=== PATIENT | female | born 1995 | race Caucasian/White ===

== ENCOUNTER → 2021-10-10 07:15 | Outpatient (CLI) | payer BC, SELFPAY ==
[2021-10-10 18:05] LABS: Influenza Control Positive
[2021-10-11 03:58] LABS: SARS-CoV-2 RNA PCR Positive
== END ==
PROVIDERS: PCP Internal Medicine; Visit Provider Nurse Practitioner
DX: R68.89 Other general symptoms and signs (principal); U07.1 COVID-19
CPT/HCPCS: 87804; C9803; U0003; U0005

== ENCOUNTER 2022-07-09 12:26 | Outpatient (CLI) | payer OTHER, SELFPAY ==
[2022-07-09 14:00] LABS: Glucose 1 Hour PP 50gm Dose 103 mg/dL
[2022-07-09 14:06] LABS: Basophils Percent Auto 0.4 % (0.2-1.2); Eosinophils Absolute Auto 0.1 K/mm3 (0-0.3); Eosinophils Percent Auto 0.8 % (0-4.4); Hematocrit 38.6 % (37.0-47.0); Immature Granulocyte Absolute 0.04 K/mm3 (0.00-0.031); Immature Granulocyte Percent A 0.4 % (0-0.5); Lymphocytes Percent Auto 21.2 % (18.3-44.2); Mean Corpuscular HGB Conc 33.7 g/dl (32-36); Mean Corpuscular Hemoglobin 31.3 pg (26-34); Mean Corpuscular Volume 92.8 fl (80-100); Mean Platelet Volume 11.1 fl (7.4-10.4); Monocytes Absolute Auto 0.7 K/mm3 (0.1-0.6); Monocytes Percent Auto 7.9 % (2.6-8.5); Neutrophils Absolute Auto 6.2 K/mm3 (1.3-6.7); Neutrophils Percent Auto 69.3 % (45.5-73.1); Platelet Count Result 300 k/mm3 (150-375); Red Blood Count 4.16 M/mm3 (4.2-5.4); Red Cell Distribution Width 12.4 % (11.5-14.5)
[2022-07-09 14:38] LABS: Hepatitis B Surface Antigen Negative (Negative); Rubella IgG Antibody 8.1 IU/ML
[2022-07-09 14:42] LABS: HIV 1/2 Ab P24 Ag Result Negative (Negative)
[2022-07-10 07:08] LABS: Rapid Plasma Reagin Non-Reactive (NonReactive)
[2022-07-11 08:36] LABS: CMV IgG Antibody <0.60 U/mL (<0.60)
== END 2022-07-09 12:27 | disposition home or self-care (01) ==
LOC: ANHLAB 12:26
PROVIDERS: PCP Internal Medicine; Visit Provider Obstetrics & Gynecology
DX: N94.89 Other specified conditions associated with female genital organs and menstrual cycle (principal)
CPT/HCPCS: 36415; 82947; 84702; 85025; 86592; 86644; 86703; 86747; 86762; 86787; 86850; 86900; 86901; 87086; 87088; 87340; G0432

== ENCOUNTER 2022-10-29 10:34 | Outpatient (CLI) | payer OTHER, BC, SELFPAY ==
[2022-10-29 12:10] LABS: Basophils Percent Auto 0.3 % (0.2-1.2); Eosinophils Percent Auto 0.5 % (0-4.4); Hematocrit 35.4 % (37.0-47.0); Hemoglobin 11.9 g/dL (12.0-15.0); Immature Granulocyte Absolute 0.06 K/mm3 (0.00-0.031); Immature Granulocyte Percent A 0.7 % (0-0.5); Lymphocytes Absolute Auto 1.94 K/mm3 (0.9-3.2); Lymphocytes Percent Auto 22.4 % (18.3-44.2); Mean Corpuscular HGB Conc 33.6 g/dl (32-36); Mean Corpuscular Hemoglobin 30.7 pg (26-34); Mean Corpuscular Volume 91.5 fl (80-100); Mean Platelet Volume 10.7 fl (7.4-10.4); Monocytes Absolute Auto 0.5 K/mm3 (0.1-0.6); Neutrophils Absolute Auto 6.1 K/mm3 (1.3-6.7); Neutrophils Percent Auto 70.1 % (45.5-73.1); Platelet Count Result 331 k/mm3 (150-375); Red Blood Count 3.87 M/mm3 (4.2-5.4); Red Cell Distribution Width 12.5 % (11.5-14.5); White Blood Count 8.7 K/mm3 (4.5-10.0)
[2022-10-29 12:21] LABS: Glucose 1 Hour PP 50gm Dose 106 mg/dL
[2022-10-29 13:04] LABS: HIV 1/2 Ab P24 Ag Result Negative (Negative)
== END 2022-10-29 10:35 | disposition home or self-care (01) ==
LOC: ANHLAB 10:38
PROVIDERS: PCP Internal Medicine; Visit Provider Obstetrics & Gynecology
DX: Z34.90 Encounter for supervision of normal pregnancy, unspecified, unspecified trimester (principal); Z3A.00 Weeks of gestation of pregnancy not specified
CPT/HCPCS: 36415; 82947; 85025; 86703; G0432

== ENCOUNTER 2023-01-25 08:26 | Outpatient (RCR) | payer OTHER, BC, SELFPAY ==
[2023-01-22 09:02] VITALS: BP 134/90; PULSE 94
--- NOTE | ~2023-01-25 | US_ITS ---
EXAMINATION: US OB BPP wo non-stress DATE: 01/25/2023 09:36 INDICATION: Postdates. TECHNIQUE: Real-time pelvic ultrasound was performed. COMPARISON: None. FINDINGS: There is a single living fetus in vertex presentation. The placenta is posterior, greater than 5 cm from the cervix. heart rate is 136 beats per minute (bpm). Biophysical profile performed by the technologist: breathing (30 sec sustained breathing in 30 minutes): 2 out of 2 movement (3 gross body movements in 30 minutes): 2 out of 2 tone (one episode of ilflzbu-mokzhspdc-vwnpolo limb movement): 2 out of 2 Amniotic fluid pocket (2 cm): 2 out of 2 Total score: 8 out of 8 IMPRESSION: 1. Single living fetus in vertex presentation. 2. Biophysical profile 8 out of 8. Reviewed, dictated and finalized at location A.
[2023-01-25 09:48] VITALS: BP 125/85; PULSE 81
== END 2023-04-22 23:59 | disposition home or self-care (01) ==
LOC: ANHOBOP 08:26
PROVIDERS: Visit Provider Obstetrics & Gynecology
DX: O48.0 Post-term pregnancy (principal); Z3A.40 40 weeks gestation of pregnancy; Z3A.41 41 weeks gestation of pregnancy
CPT/HCPCS: 59025; 76819; 90710

== ENCOUNTER 2023-01-27 09:23 | Inpatient (IN) | payer OTHER, BC, SELFPAY ==
[2023-01-27] VITALS (138 sets, daily range): BP systolic 113–152; BP diastolic 47–97; PULSE 65–143; RESP 15–18; TEMP 36.3–37; O2SAT 97–100; BMI 44.1
[2023-01-27 10:41] LABS: Basophils Percent Auto 0.5 % (0.2-1.2); Eosinophils Percent Auto 0.5 % (0-4.4); Hematocrit 32.8 % (37.0-47.0); Hemoglobin 10.8 g/dL (12.0-15.0); Immature Granulocyte Absolute 0.05 K/mm3 (0.00-0.031); Immature Granulocyte Percent A 0.8 % (0-0.5); Lymphocytes Absolute Auto 1.59 K/mm3 (0.9-3.2); Lymphocytes Percent Auto 24.3 % (18.3-44.2); Mean Corpuscular HGB Conc 32.9 g/dl (32-36); Mean Corpuscular Hemoglobin 29.3 pg (26-34); Mean Corpuscular Volume 89.1 fl (80-100); Mean Platelet Volume 11.5 fl (7.4-10.4); Monocytes Absolute Auto 0.6 K/mm3 (0.1-0.6); Monocytes Percent Auto 9.2 % (2.6-8.5); Neutrophils Absolute Auto 4.3 K/mm3 (1.3-6.7); Neutrophils Percent Auto 64.7 % (45.5-73.1); Platelet Count Result 229 k/mm3 (150-375); Red Blood Count 3.68 M/mm3 (4.2-5.4); Red Cell Distribution Width 13.9 % (11.5-14.5); White Blood Count 6.6 K/mm3 (4.5-10.0)
[2023-01-27] MEDS: OXYTOCIN 30 UNITS/NS 500 ML 30 UNITS/500 ML BAG IV CONT (11:00)
[2023-01-27] MEDS: LACTATED RINGERS 1,000 ML 125 ML IV CONT ×2 (11:17→18:49)
--- NOTE | 2023-01-27 18:48 | WPDANESEPP ---
Anes - Eval Pre Procedure Procedure: labor epidural Date/Time: 01/27/23 18:48 Pre Op Diagnosis: labor Patient Data Age: 27 Gender: F Height: 1.68 m Weight: 124 kg Last Vital Signs Temp 36.8 C 01/27/23 17:02 Pulse 73 01/27/23 16:16 Resp 18 01/27/23 14:45 BP 135/73 01/27/23 16:16 Pulse Ox 100 01/27/23 18:44 O2 Del Method Room Air 01/27/23 10:23 Allergies Allergy/AdvReac Type Severity Reaction Status Date / Time Fabric Softeners AdvReac Intermediate RASH Uncoded 01/27/23 10:19 Home Medications Medication Instructions Recorded Confirmed Type doxylamine succinate 25 mg tablet 25 mg PO QHS #60 tabs 06/15/22 01/27/23 Rx (Unisom (doxylamine)) prenat.vits,crhis,gdh-ipem-nukea 1 tablet PO DAILY 08/20/22 01/27/23 History Laboratory Tests 01/27/23 01/27/23 01/27/23 10:18 10:18 10:18 WBC 6.6 K/mm3 K/mm3 (4.5-10.0) RBC 3.68 M/mm3 L M/mm3 (4.2-5.4) Hgb 10.8 g/dL L g/dL (12.0-15.0) Hct 32.8 % L % (37.0-47.0) MCV 89.1 fl fl (80-100) MCH 29.3 pg pg (26-34) MCHC 32.9 g/dl g/dl (32-36) RDW 13.9 % % (11.5-14.5) Plt Count 229 k/mm3 k/mm3 (150-375) MPV 11.5 fl H fl (7.4-10.4) Immature Gran % (Auto) 0.8 % H % (0-0.5) Neut % (Auto) 64.7 % % (45.5-73.1) Lymph % (Auto) 24.3 % % (18.3-44.2) [place] % (Auto) 9.2 % H % (2.6-8.5) Eos % (Auto) 0.5 % % (0-4.4) Baso % (Auto) 0.5 % % (0.2-1.2) Lymph # (Auto) 1.59 K/mm3 K/mm3 (0.9-3.2) [place] # (Auto) 0.6 K/mm3 K/mm3 (0.1-0.6) Eos # (Auto) 0.0 K/mm3 K/mm3 (0-0.3) Baso # (Auto) 0.0 K/mm3 K/mm3 (0.0-0.1) Abs Immat Gran (auto) 0.05 K/mm3 H K/mm3 (0.00-0.031) Absolute Neuts (auto) 4.3 K/mm3 K/mm3 (1.3-6.7) Absolute Nucleated RBC 0.0 K/mm3 K/mm3 (0.0-0.012) Nucleated RBC % 0.0 % % (0.0-0.2) RPR Pending Blood Type O Positive Antibody Screen Negative Patient hx anesthesia problems: none Family hx anesthesia problems: none Results Review: All pre-operative results and documents have been reviewed as part of the pre-operative evaluation. FORMERLY [facility] Past Medical History Medical History Acute gastroenteritis Anxiety Body mass index (bmi) 34.0-34.9, adult Gastro-esophageal reflux disease without esophagitis Lump of breast, right Surgical History Surgical History History of lumpectomy of right breast Family History Family History Mother Patient's mother is in good health Father Patient's father is in good health Sibling Patient's sister is in good health Social History Social History Smoking status: Never smoker Alcohol intake: never Substance use: former Substance use type: does not use Lack of Transportation: No Lack of Food: Never True Current Housing: I Have Housing Concerned About Future Housing: No Difficulty Paying Gas/Electric Bills: No Difficulty Paying for Meds: No Currently Unemployed: No Education: Bachelor's Degree Difficulty w/ Childcare or Family Care: No Living arrangements: with family Occupation/Education: occupation 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
[2023-01-27] MEDS: SODIUM CHLORIDE 0.9% IV 300 ML 600 ML I-UTERINE (19:49)
[2023-01-27] MEDS: FAMOTIDINE 20 MG/2 ML VIAL IV PUSH (21:31)
[2023-01-28] VITALS (66 sets, daily range): BP systolic 113–151; BP diastolic 58–98; PULSE 81–120; RESP 16–18; TEMP 36.7–37.4; O2SAT 97–100
[2023-01-28] MEDS: AMPICILLIN 2 GM/NS 100 ML 2 GM/100 ML BAG IVPB (02:41)
[2023-01-28] MEDS: OXYTOCIN 30 UNITS/NS 500 ML 30 UNITS/500 ML BAG 125 UNITS IV CONT (04:12)
--- NOTE | 2023-01-28 04:24 | WPDOBADMIT ---
Obstetrics - Admit Note Admission Note: record reviewed. No pertinent additions to the history and/or any subsequent changes in the physical findings that are not consistent with the expected course of the were found. Additions to the history and/or subsequent changes in the physical findings follow. Pt admitted after SROM of clear fluid at home.
--- NOTE | 2023-01-28 04:25 | PM.OBPRVD ---
OB - Delivery Note Procedure Delivery date: 01/28/23 Procedure: Intrapartal Events: Other (Prolonged rupture of membranes) Induction method: Per Pitocin Protocol Delivery augmentation: Pitocin Delivery monitor: External FHT and External Uterine Route of delivery: Episiotomy description: None Laceration Description: Perineal - 3rd Degree (partial- Repaired by Dr. Street) Delivery repair: vicryl Specimen: No Quantitative Blood Loss (ml): 500 Anesthesia type: Epidural Disposition: Floor Narrative: Patient arrived after spontaneous rupture of membranes at home. She was augmented with Pitocin. She received an epidural for analgesia. After a period of variable decelerations she received an amnio infusion. variables that improved, resolved. after 18 hours of rupture of membranes, antibiotics were started per protocol. She progressed to complete dilation and pushed with contractions. After the delivery of the head, no restitution was observed and a nuchal cord was identified. With the next push the anterior shoulder slowly delivered followed by the posterior. The remainder of the was delivered to the somersault maneuver. The cord was reduced from the neck and the body. The was placed on maternal abdomen and care was transferred to the nursery staff. After 1 minute of life, the cord was doubly clamped and cut. Cord blood, cord gases, and cord segment were obtained. The placenta delivered spontaneously. A partial third-degree laceration was identified and Dr. Street was called for repair. Using 0 Vicryl, she repaired the third-degree laceration in the usual fashion as well as the remainder of the vaginal tear. There was excellent hemostasis. All delivery counts correct. Mother baby skin to skin in the delivery room. Infant weight not available at the time of this note. [place] Baby Date of : 01/28/23 Time of : 03:43 Weeks of gestation at delivery: 41 Infant gender: Female presentation: vertex position: Right Occiput Anterior Placenta delivery description: Spontaneous Cord Vessel Description: 3 Vessels, Nuchal Cord, Clamped/Cut, Delayed Cord Clamping and Around Body score one minute: 8 score five minutes: 9
[2023-01-28] MEDS: IBUPROFEN 600 MG TABLET PO ×3 (05:38→18:51)
[2023-01-28] MEDS: BENZOCAINE 20% AER SPR (*SP) 56 GM CAN 1 SPRAY TOPICAL (06:45)
[2023-01-28] MEDS: WITCH HAZEL 40 PADS 1 PAD TOPICAL (06:45)
--- NOTE | 2023-01-28 06:53 | OBPPTRN ---
Patient transferred to post room #292 via wheelchair. Support person present. Oriented to unit, room, information board, rooming in, admission packet and security measures. Patient verbalizes understanding.
--- NOTE | 2023-01-28 07:55 | PM.OBDSVD ---
DS: Admitting Diagnosis Discharge Date 01/29/2023 Admitting Diagnosis 27 y.o. IUP at 41 weeks 2 days SROM of clear fluid Rubella Non-Immune DS: Discharge Diagnosis Discharge Diagnosis (1) (normal spontaneous vaginal delivery): Code(s): O80 - Encounter for full-term uncomplicated delivery Status: Acute (2) Rubella non-immune status, delivered, current hospitalization: Code(s): O99.892 - Other specified diseases and conditions complicating childbirth; Z28.39 - Other underimmunization status Status: Acute (3) Mother currently breast-feeding: Code(s): Z39.1 - Encounter for care and examination of lactating mother Status: Acute OB - DS: Summary OB Procedures : Ultrasound OB Procedures Intrapartum: Spontaneous Vag Delivery OB Procedures: : None Time Spent with Patient Time attestation: Total time spent providing and/or coordinating discharge services: DS: Data Data Completed and Pending Labs on day of discharge: Labs from last 24 hours 01/27/23 01/27/23 01/27/23 10:18 10:18 10:18 WBC 6.6 RBC 3.68 L Hgb 10.8 L Hct 32.8 L MCV 89.1 MCH 29.3 MCHC 32.9 RDW 13.9 Plt Count 229 MPV 11.5 H Immature Gran % (Auto) 0.8 H Neut % (Auto) 64.7 Lymph % (Auto) 24.3 [place] % (Auto) 9.2 H Eos % (Auto) 0.5 Baso % (Auto) 0.5 Lymph # (Auto) 1.59 [place] # (Auto) 0.6 Eos # (Auto) 0.0 Baso # (Auto) 0.0 Abs Immat Gran (auto) 0.05 H Absolute Neuts (auto) 4.3 Absolute Nucleated RBC 0.0 Nucleated RBC % 0.0 RPR Pending Blood Type O Positive Antibody Screen Negative Discharge Plan Discharge Consulting providers: Tammy Schuler; Tangela Jacobson Discharging Clinician: Alec Vila Patient Disposition: Home, Self-Care Activity: may shower Diet: regular Discharge Instructions: Continue taking your vitamin and any other supplements as previously directed (Examples: Iron, Vitamin D). You may take Tylenol 1000mg over the counter every 6 hours as needed for pain. Do not exceed 4000mg of Tylenol daily. You may continue using tucks pads and dermoplast spray if needed for a few more days. Education: Mom and Baby Guide Given to: Mother Follow-Up: Call your delivering provider's office for an appointment to be seen in: 6 Weeks Mom [facility]. Appointment Date/Time: January 30, 2023 at 10:00 am What to expect at your follow-up visit: Physical Assessment Call [phone] if you are unable to keep your appointment time. BREAST CARE: * Wear a snug supportive bra. * For engorgement discomfort: Breast Feeding/Pumping: * Apply warm moist washcloths * Express milk as needed to relieve engorgement * Wear loose clothing Bottle Feeding and if not pumping: * May apply ice packs * For sore nipples: * Identify correct latch-on and/or flange size * Apply warm moist washcloths before and after nursing * Air dry nipples after nursing * May apply Lansinoh cream to nipples EPISIOTOMY/PERINEAL CARE: * Until bleeding stops, use your sanaz bottle after urinating * Change your pad frequently throughout the day * You may take sitz baths several times a day (fill your bathtub with warm water and soak for 20 minutes.) Do NOT bathe in the water * No tub baths until seen by your physician - You may shower ACTIVITY: * Rest as much as possible. * Do not exercise or lift anything heavier than your baby (such as laundry or other children.) * Avoid stairs or driving as much as possible. * Do not put anything into the vagina. No douching, tampons, or sexual activity until seen by physician. NOTIFY PHYSICIAN IF YOU HAVE ANY QUESTIONS OR IF ANY OF THE FOLLOWING SYMPTOMS OCCUR: * If your episiotomy/perineum beco
[2023-01-28 09:40] LABS: Rapid Plasma Reagin Non-Reactive (NonReactive)
[2023-01-28] MEDS: DOCUSATE SODIUM 100 MG CAPSULE PO (11:57)
[2023-01-29 04:55] VITALS: BP 139/91; PULSE 93; RESP 16; TEMP 36.6; O2SAT 96
[2023-01-29 04:57] LABS: Hematocrit 26.5 % (37.0-47.0); Hemoglobin 8.7 g/dL (12.0-15.0)
[2023-01-29] MEDS: IBUPROFEN 600 MG TABLET PO (05:03)
[2023-01-29] MEDS: DOCUSATE SODIUM 100 MG CAPSULE PO (07:38)
[2023-01-29] MEDS: POLYSACCHARIDE IRON COMPLEX 150 MG CAPSULE PO (07:38)
[2023-01-29] MEDS: MULTIVIT/MIN/PREN/FOL AC/IRON TABLET 1 TAB PO (07:38)
--- NOTE | 2023-01-29 08:39 | P.DS_ITS ---
DS: Admitting Diagnosis Discharge Date 01/29/2023 Admitting Diagnosis DS: Discharge Diagnosis Discharge Diagnosis (1) , delivered: Code(s): O80 - Encounter for full-term uncomplicated delivery Status: Acute OB - DS: Summary OB Procedures : None OB Procedures Intrapartum: Spontaneous Vag Delivery OB Procedures: : None Time Spent with Patient Time attestation: Total time spent providing and/or coordinating discharge services: DS: Data Data Completed and Pending Labs on day of discharge: Labs from last 24 hours 01/29/23 01/27/23 04:45 10:18 Hgb 8.7 L Hct 26.5 L RPR Non-reactive Discharge Plan Discharge Discharging Clinician: Alec Vila Patient Disposition: Home, Self-Care Activity: may shower Diet: regular Discharge Instructions: Continue taking your vitamin and any other supplements as previously directed (Examples: Iron, Vitamin D). You may take Tylenol 1000mg over the counter every 6 hours as needed for pain. Do not exceed 4000mg of Tylenol daily. You may continue using tucks pads and dermoplast spray if needed for a few more days. Patient Instructions: Antibiotic Form Stand Alone Forms: General Discharge Information Follow-up/Referrals: Alec Vila MD [Physician] - (6 weeks post ) Discharge Medications: New ibuprofen 600 mg Tablet 600 mg PO Q6H PRN (Reason: Cramping) Qty: 30 0RF Continued Unisom (doxylamine) 25 mg tablet 25 mg PO QHS Qty: 60 1RF prenat.vits,chris,iwq-njml-cefrr Tablet 1 tablet PO DAILY Date of admission: 01/27/23 09:23 Primary Care Provider: PHYSICIAN,[employer] LAW CLERK Admitting Provider: Alec Vila Attending physician on admission: Alec Vila Condition: Stable
[2023-01-29 08:40] VITALS: BP 132/89; PULSE 88; RESP 20; TEMP 36.8; O2SAT 100
--- NOTE | 2023-01-29 13:00 | PC.NURSE ---
Patient to view the discharge video Mother & Baby Care, The First Two Weeks online. Patient was given the opportunity and encouraged to ask questions. Patient verbalized understanding of information shared and has been given the mother/baby guide for home reference. Spoke w/ pt regarding going home today or if she would like to stay until tomorrow and work on , per patient she would like to go home this afternoon and she will have her follow up tomorrow here at [place] [facility]. RN will go over discharge instructions with pt and reinforce feeding plan with /pumping and bottle feeding.
--- NOTE | 2023-01-29 14:00 | PC.NURSE ---
[phone] Introductions were made, then consulted with patient to assess needs related to . Mother led the conversation with her?plans to feed?her infant and the?experience so far. Resources provided for inpatient and outpatient services with the feeding sheet, mom/baby guide and name written on the white board. Mother voiced understanding of information and will call if there is a request for assistance. Reported to the primary RN. [phone] Mother works well with her with encouragement and education. Encouraged understanding of the benefits of skin to skin (demonstrating unwrapping infant and placing upright on her chest), stimulating with massage touch, changing positions to encourage wakefulness, how to watch for early feeding cues, responsive feeding, feeding on demand (aiming for 8-12 times in 24 hours, about every 2-3 hours), milk production, building/maintaining a milk supply, hand expression, duration of feeding, signs of adequate intake/output and how to record on the feeding sheet. Reviewed positioning and ear, shoulder, hip alignment, supporting the breast to facilitate a deep latch, asymmetrical latch (off-center), leading with the chin with a big, open, wide gape and body close to mother. Attempts were made to latch infant to the right breast using the football position as that is good alignment for mothers breast and comfortablr. Infant is unable to effectively latch to the right breast and pacifies with the nipple at the edge of the lips. No swallowing observed. Infant latched optimally to the left breast in football position. Education given to mother of how to visualize suck/swallow ratios and listen for drinking at the breast. Infant was able to maintain latch without discomfort to mother. Nipple care reviewed with optimal latch and good positioning. Reviewed good handwashing when or touching the breast/nipples to prevent infection. Resources used to facilitate learning were used with the visual handouts/QR codes/ tool/mom and baby guide. Mother voiced understanding of skin to skin, stimulating with massage touch, responsive feedings, hand expressed colostrum, talking to to encourage if it has been 2 -2.5 hours since the start of the last , to call if infant does not latch, or if there is discomfort with . Resources were provided on introduction. Parents voiced understanding of information, demonstrated learning and will call if there is a request for assistance. Reported to the primary RN. [phone] Purposefully rounded to assess needs and deliver a pump through [facility]. Mother was encouraged to stay and practice and chooses to be discharged to home. After changing a wet diaper, was demonstrating feeding cues early and mother consented to practicing on the right breast. There was no effective latch at this time. Reviewed continue with the plan of attempting to breastfeed, pumping to protect the milk supply if infant doesn't latch or receives a bottle, and to supplement infant with expressed breast milk or formula as needed to prevent sickness. Mother is feeding appropriately for growth of and understands stimulating to eat if needed. Infant has had appropriate feedings in the last 24 hours meets the outcomes for weight, output and jaundice at this time. Mother states she is confident to continue to feed her at home, when to call for assistance and denies any additional assistance or education at this time. Reinforced understanding of milk production, transition of milk, signs of adequate intake, transition of stool, prevention/relief of engorgement, responsive watching for feeding cues, the different methods of stimulating to breastfeed 2-3 hours after the start of the last feeding, community resources, and when to call a provider using the resource of the mom an
[2023-01-30 10:12] VITALS: BP 153/96; PULSE 79; RESP 20; TEMP 36.6; O2SAT 100
[2023-01-30] MEDS: MEASLES,MUMPS,RUBELLA VACCINE 0.5 ML VIAL SUB-Q (10:29)
== END 2023-01-29 14:15 | disposition home or self-care (01) | DRG 768 ==
LOC: ANHLDR 10:03 → ANHOB2 01-28 06:54
PROVIDERS: Advanced Practice Midwife; Admitting Provider Obstetrics & Gynecology; Visit Provider Obstetrics & Gynecology
DX: O42.92 Full-term premature rupture of membranes, unspecified as to length of time between rupture and onset of labor (principal); Z37.0 Single live birth; O70.20 Third degree perineal laceration during delivery, unspecified; O76 Abnormality in fetal heart rate and rhythm complicating labor and delivery; O69.81X0 Labor and delivery complicated by cord around neck, without compression, not applicable or unspecified; Z3A.41 41 weeks gestation of pregnancy
CPT/HCPCS: 36415; 84112; 85014; 85018; 85025; 86592; 86850; 86900; 86901; 90710; A9270; J0290; J2590; J2795; J7030; J7120

== ENCOUNTER 2023-04-10 11:33 | Outpatient (CLI) | payer BC, SELFPAY | END 2023-04-10 11:34 | disposition home or self-care (01) | LOC: ANHLAB 11:35 | PROVIDERS: Visit Provider Obstetrics & Gynecology | DX: N39.0 Urinary tract infection, site not specified (principal) | CPT/HCPCS: 87086; 87088 ==

== ENCOUNTER 2024-06-08 10:26 | Outpatient (CLI) | payer BC, SELFPAY ==
[2024-06-08 14:08] LABS: Hematocrit 41.3 % (37.0-47.0); Hemoglobin 13.4 g/dL (12.0-15.0); Mean Corpuscular HGB Conc 32.4 g/dl (32-36); Mean Corpuscular Hemoglobin 30.2 pg (26-34); Mean Corpuscular Volume 93.2 fl (80-100); Mean Platelet Volume 11.4 fl (7.4-10.4); Platelet Count Result 313 k/mm3 (150-375); Red Blood Count 4.43 M/mm3 (4.2-5.4); Red Cell Distribution Width 12.7 % (11.5-14.5); White Blood Count 7.1 K/mm3 (4.5-10.0)
[2024-06-08 14:57] LABS: Alanine Aminotransferase 21 U/L (6-35); Albumin Level 4.4 g/dL (3.5-5.1); Alkaline Phosphatase 85 U/L (38-126); Anion Gap 9 mmol/L (4-12); Aspartate Amino Transferase 49 U/L (14-36); Bilirubin,Total 0.4 mg/dL (0.2-1.3); Blood Urea Nitrogen 15 mg/dL (7-17); Calcium 9.2 mg/dL (8.4-10.2); Carbon Dioxide 26 mmol/L (22-30); Chloride 102 mmol/L (98-107); Cholesterol 190 mg/dL (0-200); Estimated Glomerular Filt Rate > 60; Glucose 78 mg/dL (65-110); HDL Direct 45 mg/dL; Potassium 4.1 mmol/L (3.4-5.0); Sodium 137 mmol/L (137-145); Triglycerides 117 mg/dL (<150)
[2024-06-08 15:09] LABS: LDL Cholesterol Direct 112 mg/dL
== END 2024-06-08 10:27 | disposition home or self-care (01) ==
LOC: ANHGOSHLAB 10:27
PROVIDERS: PCP Nurse Practitioner; Visit Provider Nurse Practitioner
DX: Z13.6 Encounter for screening for cardiovascular disorders (principal); Z13.29 Encounter for screening for other suspected endocrine disorder; Z13.220 Encounter for screening for lipoid disorders; Z76.89 Persons encountering health services in other specified circumstances; E55.9 Vitamin D deficiency, unspecified
CPT/HCPCS: 36415; 80053; 80061; 84443; 85027

== ENCOUNTER 2024-12-07 08:33 | Outpatient (CLI) | payer BC, SELFPAY ==
[2024-12-07 10:07] LABS: Basophils Percent Auto 0.5 % (0.2-1.2); Eosinophils Percent Auto 0.5 % (0-4.4); Hematocrit 37.2 % (37.0-47.0); Hemoglobin 12.8 g/dL (12.0-15.0); Immature Granulocyte Absolute 0.04 K/mm3 (0.00-0.031); Immature Granulocyte Percent A 0.5 % (0-0.5); Lymphocytes Absolute Auto 1.72 K/mm3 (0.9-3.2); Lymphocytes Percent Auto 20.6 % (18.3-44.2); Mean Corpuscular HGB Conc 34.4 g/dl (32-36); Mean Corpuscular Hemoglobin 30.8 pg (26-34); Mean Corpuscular Volume 89.4 fl (80-100); Mean Platelet Volume 10.9 fl (7.4-10.4); Monocytes Absolute Auto 0.4 K/mm3 (0.1-0.6); Monocytes Percent Auto 4.3 % (2.6-8.5); Neutrophils Absolute Auto 6.2 K/mm3 (1.3-6.7); Neutrophils Percent Auto 73.6 % (45.5-73.1); Platelet Count Result 295 k/mm3 (150-375); Red Blood Count 4.16 M/mm3 (4.2-5.4); Red Cell Distribution Width 12.7 % (11.5-14.5); White Blood Count 8.4 K/mm3 (4.5-10.0)
[2024-12-07 10:14] LABS: Glucose 1 Hour PP 50gm Dose 111 mg/dL
[2024-12-07 10:54] LABS: Hepatitis B Surface Antigen Negative (Negative); Rubella IgG Antibody 18.5 IU/ML
[2024-12-07 10:56] LABS: HIV 1/2 Ab P24 Ag Result Negative (Negative)
[2024-12-08 08:58] LABS: CMV IgG Antibody <0.60 U/mL; Varicella IgG Antibody 3.83 S/CO
[2024-12-08 13:20] LABS: RPR Screen NON-REACTIVE (NON-REACTIVE)
== END 2024-12-07 08:34 | disposition home or self-care (01) ==
LOC: ANHLAB 08:33
PROVIDERS: PCP Nurse Practitioner; Visit Provider Obstetrics & Gynecology
DX: N94.89 Other specified conditions associated with female genital organs and menstrual cycle (principal)
CPT/HCPCS: 36415; 82947; 84702; 85025; 86592; 86644; 86703; 86747; 86762; 86787; 86850; 86900; 86901; 87086; 87340; G0432

== ENCOUNTER 2025-05-07 08:01 | Outpatient (CLI) | payer BC, SELFPAY ==
[2025-05-07 09:15] LABS: Hematocrit 33.4 % (37.0-47.0); Hemoglobin 11.2 g/dL (12.0-15.0); Immature Granulocyte Percent A 1.1 % (0-0.5); Lymphocytes Absolute Auto 1.52 K/mm3 (0.9-3.2); Mean Corpuscular HGB Conc 33.5 g/dl (32-36); Mean Corpuscular Hemoglobin 30.6 pg (26-34); Mean Corpuscular Volume 91.3 fl (80-100); Nucleated Red Blood Cells Absolute Auto 0.000 K/mm3 (0.0-0.012); Nucleated Red Blood Cells Perc 0.0 % (0.0-0.2); Platelet Count Result 288 k/mm3 (150-375); Red Blood Count 3.66 M/mm3 (4.2-5.4); White Blood Count 8.4 K/mm3 (4.5-10.0)
[2025-05-07 09:28] LABS: Glucose 1 Hour PP 50gm Dose 129 mg/dL
[2025-05-07 10:12] LABS: Syphilis IgG/IgM Antibody Non-Reactive (Nonreactive)
[2025-05-07 10:16] LABS: HIV 1/2 Ab P24 Ag Result Negative (Negative)
== END 2025-05-07 08:02 | disposition home or self-care (01) ==
LOC: ANHLAB 08:03
PROVIDERS: PCP Family Medicine; Visit Provider Obstetrics & Gynecology
DX: Z34.90 Encounter for supervision of normal pregnancy, unspecified, unspecified trimester (principal); Z3A.00 Weeks of gestation of pregnancy not specified
CPT/HCPCS: 36415; 82947; 85025; 86593; 86703; G0432

== ENCOUNTER 2025-07-06 09:52 | Inpatient (IN) | payer BC, SELFPAY ==
[2025-07-06] VITALS (249 sets, daily range): BP systolic 72–136; BP diastolic 24–98; PULSE 44–178; TEMP 36.2–36.8; O2SAT 88–100; BMI 40.4
[2025-07-06] MEDS: LACTATED RINGERS 1,000 ML 999 ML IV CONT ×2 (10:30→11:31)
--- NOTE | 2025-07-06 10:42 | P.PNAN_ITS ---
Anes - Eval Pre Procedure Procedure: Operation Date: 07/06/25 12:00 Proposed Procedures p ECV Procedure - Mariluz Dickerson MD Date/Time: 07/06/25 10:42 Surgeon: Tuan Preop Diagnosis: Labor Pain Pre Op Diagnosis: external vesion w/ iol or c/s Patient Data Age: 29 Gender: F Height: Weight: Last Vital Signs Pulse 94 07/06/25 10:31 BP 116/69 07/06/25 10:31 Allergies Allergy/AdvReac Type Severity Reaction Status Date / Time Fabric Softeners AdvReac Intermediate RASH Uncoded 07/05/25 08:47 Home Medications ?Medication ?Instructions ?Recorded ?Confirmed ?Type vits no.126-ferrous fum tablet PO 12/03/24 History 28 mg iron-folic acid 800 mcg tablet (Classic ) aspirin 81 mg chewable tablet 81 mg PO DAILY 05/06/25 07/05/25 History : gestational age (CARLO 07/10/25, ) Patient hx anesthesia problems: none Family hx anesthesia problems: none Results Review: All pre-operative results and documents have been reviewed as part of the pre- operative evaluation. [facility] Past Medical History Medical History Lump of breast, right Body mass index (bmi) 34.0-34.9, adult Gastro-esophageal reflux disease without esophagitis Anxiety Acute gastroenteritis Surgical History Surgical History History of lumpectomy of right breast Family History Family History Mother Patient's mother is in good health Father Patient's father is in good health Sibling Patient's sister is in good health Social History Social History Smoking status: Never smoker Alcohol intake: former Substance use: never Substance use type: does not use Do You Feel Safe in your Home?: Yes Lack of Transportation: No Lack of Food: Never True Current Housing: Decline to Answer Concerned About Future Housing: Decline to Answer Difficulty Paying Gas/Electric Bills: Decline to Answer Difficulty Paying for Meds: Decline to Answer Currently Unemployed: Decline to Answer Education: Associate Degree Difficulty w/ Childcare or Family Care: Decline to Answer Living arrangements: with family Occupation/Education: occupation 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
--- NOTE | 2025-07-06 10:44 | LDADM ---
This patient, Grace Gama, was admitted to Labor/Delivery/Recovery 119 on 07/06/25 at 09:52. Plans for labor, pain management and were discussed with patient. Patient/family oriented to hospital policies and general routines including ID bracelet, bed and alarms, visiting hours, pain management, procedures, bathroom and other care routines, personal items, smoking policy, room service/diet and guest tray routines, security routines, and visiting hours. Patient/Family are encouraged to report perceived risks to care and to ask questions if they do not understand what they are told or what they should do. See [facility] for further documentation.
[2025-07-06 10:46] LABS: Hematocrit 33.6 % (37.0-47.0); Hemoglobin 11.2 g/dL (12.0-15.0); Immature Granulocyte Percent A 0.7 % (0-0.5); Lymphocytes Absolute Auto 1.68 K/mm3 (0.9-3.2); Mean Corpuscular HGB Conc 33.3 g/dl (32-36); Mean Corpuscular Hemoglobin 29.6 pg (26-34); Mean Corpuscular Volume 88.7 fl (80-100); Nucleated Red Blood Cells Absolute Auto 0.000 K/mm3 (0.0-0.012); Nucleated Red Blood Cells Perc 0.0 % (0.0-0.2); Platelet Count Result 310 k/mm3 (150-375); Red Blood Count 3.79 M/mm3 (4.2-5.4); White Blood Count 7.4 K/mm3 (4.5-10.0)
[2025-07-06 11:21] LABS: Syphilis IgG/IgM Antibody Non-Reactive (Nonreactive)
--- NOTE | 2025-07-06 11:53 | PM.IMHP ---
H&P: HPI History of Present Illness Date/Time: 07/06/25 07:34 Chief Complaint: breech malpresentation Narrative: Grace is a 29yo @ 39.3wks who presents to L&D for possible ECV; if successful, will proceed with IOL, if unsuccessful we will proceed with pLTCS. She reports good movement. No ctx, vb, lof. Her is complicated by: - Partial 3rd degree perineal lac (9lb baby at 41wks) -- 39wks IOL - Anxiety; on buspirone - pre-eclampsia, ASA @ 12wks. - Obesity; pre-preg BMI 37 - BREECH 06/16/25 Review of Systems Constitutional: Constitutional: Denies chills, Denies fever(s) and Denies headache(s) Eyes: Eyes: Denies change in vision ENT: Denies headache(s) Cardiovascular: Cardiovascular: Denies chest pain and Denies dyspnea Respiratory: Respiratory: Denies dyspnea Genitourinary: Genitourinary: Denies abnormal vaginal bleeding and Denies vaginal discharge Neurologic: Denies headache(s) Psychiatric: Psychiatric: Denies anxiety and Denies depression [facility] Past Medical History Medical History Lump of breast, right Body mass index (bmi) 34.0-34.9, adult Gastro-esophageal reflux disease without esophagitis Anxiety Acute gastroenteritis Surgical History Surgical History History of lumpectomy of right breast Family History Family History Mother Patient's mother is in good health Father Patient's father is in good health Sibling Patient's sister is in good health Social History Social History Smoking status: Former smoker Tobacco type: cigarettes Additional smoking assessment comments: random cigarette in past but nothing consistent Alcohol intake: former Substance use: never Substance use type: does not use Do You Feel Safe in your Home?: Yes Lack of Transportation: No Lack of Food: Never True Current Housing: I Have Housing Concerned About Future Housing: No Difficulty Paying Gas/Electric Bills: No Difficulty Paying for Meds: No Currently Unemployed: No Education: Associate Degree Difficulty w/ Childcare or Family Care: No Living arrangements: with family Occupation/Education: occupation 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 Gender identity (if verbalized by the patient): Female Sexual Orientation (if Verbalized by the Patient): Straight or Heterosexual Spiritual care concerns: No Meds Home Medications and Allergies Home Medications ?Medication ?Instructions ?Recorded ?Confirmed ?Type vits no.126-ferrous fum 1 tablet PO DAILY 12/03/24 07/06/25 History 28 mg iron-folic acid 800 mcg tablet (Classic ) aspirin 81 mg chewable tablet 81 mg PO DAILY 05/06/25 07/06/25 History Allergies Allergy/AdvReac Type Severity Reaction Status Date / Time Fabric Softeners AdvReac Intermediate RASH Uncoded 07/05/25 08:47 Exam Const: General: cooperative, no acute distress and obese Nutritional Appearance: obese Orientation/consciousness: patient oriented x3 Resp: Effort & Inspection: normal respiratory effort Cardio: Rate: regular rate GI: GI Palp: No abdominal tenderness : Other: FHT's: 130's/ mod jacob/ + accels/ no decels - cat 1 TOCO: no ctxs Membranes: intact Presentation: BREECH on bedside US Skin: General skin exam: normal color Neuro: General: patient oriented x3 Extrem: General: normal to inspection Psych: Appearance: grossly normal Affect: normal affect Attitude: cooperative Assessment and Plan Assessment and plan (1) Breech presentation: Qualifiers: Fetus number: single or unspecified fetus Qualified Code(s): O32.1XX0 - Maternal care for breech presentation, not applicable or unspecified Code(s): O32.1XX0 - Maternal care for breech presentation, not applicable or unspecified Status: Acute Plan - Admit to L&D for attempt at ECV; risks and benefits discussed in detail, pt good candidate - Anesthesia consult for epidural placement prior to ECV to pain control during procedure - Will give terb right before attempt to relax the uterus - If ECV successful, we will proceed with IOL; cytotec 50mcg q4h x 1-2 doses, then proceed with pitocin augmentation - If ECV unsuccessful, will proceed with pLTCS; risks and benefits discussed in detail, ancef 2g IV once - GBS negative
[2025-07-06] MEDS: TERBUTALINE SULFATE 1 MG/ML VIAL 0.25 MG SUB-Q (12:15)
[2025-07-06] MEDS: LACTATED RINGERS 1,000 ML 125 ML IV CONT ×3 (12:37→22:30)
[2025-07-06] MEDS: ePHEDrine sulfate INJ 50 MG/ML AMPUL IV PUSH (12:47)
[2025-07-06] MEDS: ePHEDrine sulfate INJ 50 MG/ML AMPUL 10 MG IV PUSH (12:55)
--- NOTE | 2025-07-06 13:04 | PM.OBPNLAB ---
Pain Control Date/time seen: 07/06/25 13:04 Pain control: epidural Pelvic Exam Dilation (cm): 1 (.5) Effacement (%): 20 station: -4 Amniotic membrane status: Intact Contractions Monitor mode: External Status status: Category l Assessment and Plan Plan: begin patient augmentation Comments: ECV successful and she was converted to cephalic presentation will start pitocin augmentation GBS Neg epidural in place (dosed once, will start infusion once in pain) Will plan for AROM once sergio more frequently/lower station
[2025-07-06] MEDS: OXYTOCIN 30 UNITS/NS 500 ML 30 UNITS/500 ML BAG IV CONT (14:02)
--- NOTE | 2025-07-06 18:43 | PM.OBPNLAB ---
Pain Control Date/time seen: 07/06/25 18:30 Pain control: tolerating well Pelvic Exam Dilation (cm): 3 Effacement (%): 50 station: -3 Amniotic membrane status: Ruptured (AROM, thin mec 1840) Contractions Monitor mode: Internal Status status: Category l Assessment and Plan Pitocin rate (mU/min): 8 Assessment: induction ongoing Plan: continuous present management Comments: - IUPC placed this exam
[2025-07-06] MEDS: LACTATED RINGERS 500 ML 999 ML IV CONT (22:40)
[2025-07-06] MEDS: CALCIUM CARBONATE (TUMS) 500 MG (200 MG ELEMENTAL) PO (23:49)
[2025-07-07] VITALS (53 sets, daily range): BP systolic 95–133; BP diastolic 47–90; PULSE 77–118; RESP 16–18; TEMP 36.1–36.7; O2SAT 95–100
[2025-07-07] MEDS: LACTATED RINGERS 1,000 ML 125 ML IV CONT (01:55)
--- NOTE | 2025-07-07 02:41 | PM.OBPRVD ---
OB - Vaginal Delivery Note Procedure Delivery date: 07/07/25 Events: Other (breech successfully converted to cephalic) Induction method: Per Pitocin Protocol Delivery augmentation: Rupture of Membranes Delivery monitor: External FHT and Internal Uterine Route of delivery: Laceration Description: Periurethral (left) and Perineal - 1st Degree Delivery repair: vicryl Quantitative Blood Loss (ml): 250 Anesthesia type: Epidural Disposition: Floor Complications: No immediate complications Baby Date of : 07/07/25 Time of : 02:26 Gestational Age by Date: 39 (4) Infant gender: Male presentation: vertex position: Right Occiput Anterior Placenta delivery description: Expressed Cord Vessel Description: 3 Vessels and Delayed Cord Clamping score one minute: 9 score five minutes: 9 Narrative: Grace rapidly progressed to complete dilation with strong desire to push. She pushed for approximately 2 contractions with good maternal effort and delivered the head over intact perineum. No nuchal cord was palpated. She easily delivered the 's shoulders and body without complication. The infant was immediately placed skin to skin and had spontaneous cry. And the pediatric team was present at delivery due to thin meconium. Delayed cord clamping was performed. The umbilical cord was then doubly clamped and cut by dad. A segment of cord was collected for cord gases. The remaining cord blood was collected for typing. With Pitocin running and gentle downward traction on the cord, the placenta delivered without complication. Bimanual massage was performed and good uterine tone with minimal bleeding was noted. She was examined and a small first-degree perineal laceration as well as left periurethral laceration were identified. They were repaired using 2-0 Vicryl in the normal fashion with good reapproximation and hemostasis. Sponge, lap, instrument, and needle counts were correct at the end of the procedure. Mom and baby were left bonding in the birthing suite in stable condition.
[2025-07-07] MEDS: OXYTOCIN 30 UNITS/NS 500 ML 30 UNITS/500 ML BAG 125 UNITS IV CONT (03:00)
[2025-07-07] MEDS: BENZOCAINE 20% AER SPR (*SP) 56 GM CAN 1 SPRAY TOPICAL (04:30)
[2025-07-07] MEDS: WITCH HAZEL 40 PADS 1 PAD TOPICAL (04:30)
--- NOTE | 2025-07-07 05:27 | OBPPTRN ---
Patient transferred to post room #281 via wheelchair. Support person present. Oriented to unit, room, information board, rooming in, admission packet and security measures. Patient verbalizes understanding.
[2025-07-07] MEDS: IBUPROFEN 600 MG TABLET PO (08:45)
[2025-07-07] MEDS: DOCUSATE SODIUM 100 MG CAPSULE PO (08:46)
--- NOTE | 2025-07-07 11:11 | PC.NURSE ---
On 07/07/25, the student, Jannet Hill, provided care and completed [facility] documentation on this patient. I have reviewed the student's documentation and agree with the findings.
[2025-07-07] MEDS: ACETAMINOPHEN 325 MG TABLET 650 MG PO (14:25)
[2025-07-08 04:49] LABS: Hematocrit 27.9 % (37.0-47.0); Hemoglobin 9.0 g/dL (12.0-15.0)
--- NOTE | 2025-07-08 07:22 | P.PNOB_ITS ---
OB - PN: Subj Subjective Date/time seen: 07/07/25 17:54 Narrative: PPD#1 Grace reports doing well today. Her bleeding is hand lacer. Her pain is controlled. She is tolerating regular diet, voiding, passing gas, and ambulating without issues. She is breast feeding. She would like her son circumcised. OB - PN: Obj Data Labs 07/08/25 03:15 OB - PN A/P Plan Plan: routine care Comments: - PO pain meds - Regular diet - Ambulation and hydration encouraged - Continue putting baby to breast q2-3hr - Pelvic rest; take meds as prescribed - ER return precautions: fever, n/v/abd pain, bleeding, HTN Time Spent With Patient Time: Total time spent is greater than 50% in coordination of care (as documented) at patient's floor/unit and/or counseling patient: Review of Systems 2 Constitutional: Constitutional: Denies chills, Denies fever(s) and Denies headache(s) Eyes: Eyes: Denies change in vision ENT: Denies dizziness and Denies headache(s) Cardiovascular: Cardiovascular: Denies chest pain, Denies palpitations and Denies dyspnea Respiratory: Respiratory: Denies cough and Denies dyspnea Gastrointestinal: Gastrointestinal: Denies nausea and Denies vomiting Neurologic: Denies dizziness and Denies headache(s) Endocrine: Endocrine: Denies palpitations Exam 2 Const: General: cooperative, comfortable and no acute distress O rientation/consciousness: patient oriented x3 Resp: Effort & Inspection: normal respiratory effort Auscultation: clear to auscultation bilaterally Cardio: Rate: regular rate GI: Inspection: non-distended GI Palp: No abdominal tenderness and Yes Soft to palpation Auscultation: normal bowel sounds : Other: fundus firm Skin: General skin exam: normal color Neuro: General: patient oriented x3 Extrem: General: normal to inspection Psych: Appearance: grossly normal Affect: normal affect Attitude: c ooperative
--- NOTE | 2025-07-08 07:44 | PM.OBDSVD ---
DS: Admitting Diagnosis Discharge Date 07/08/25 Admitting Diagnosis Breech malpresentation Successful ECV DS: Discharge Diagnosis Discharge Diagnosis (1) Breech malpresentation successfully converted to cephalic presentation: Qualifiers: Fetus number: single or unspecified fetus Qualified Code(s): O32.1XX0 - Maternal care for breech presentation, not applicable or unspecified Code(s): O32.1XX0 - Maternal care for breech presentation, not applicable or unspecified Status: Acute (2) (normal spontaneous vaginal delivery): Code(s): O80 - Encounter for full-term uncomplicated delivery Status: Acute OB - DS: Summary OB Procedures : Ultrasound and External version OB Procedures Intrapartum: Spontaneous Vag Delivery OB Procedures: : None Peripartum Data Delivery Method: Natural Vaginal Laceration Description: Periurethral (left) and Perineal - 1st Degree Episiotomy description: None Procedures: Procedures Operation Date: 07/06/25 12:00 <No data on this case meets the specified criteria> complications: none [place] 1: Gender: Male Disposition of : home Status at Discharge Functional status at discharge: independent ambulation Overall status at discharge: patient is back to baseline Time Spent with Patient Time attestation: Total time spent providing and/or coordinating discharge services: Exam Const: General: cooperative, comfortable, no acute distress and obese Nutritional Appearance: obese Orientation/consciousness: patient oriented x3 Resp: Effort & Inspection: normal respiratory effort Auscultation: clear to auscultation bilaterally Cardio: Rate: regular rate GI: Inspection: non-distended GI Palp: No abdominal tenderness and Yes Soft to palpation Auscultation: normal bowel sounds : Other: fundus firm Skin: General skin exam: normal color Neuro: General: patient oriented x3 Extrem: General: normal to inspection Psych: Appearance: grossly normal Affect: normal affect Attitude: cooperative Discharge Plan Discharge Attending physician on discharge: Mariluz Dickerson Discharging Clinician: Mariluz Dickerson Patient Disposition: Home Activity: may shower and pelvic rest Diet: regular Patient Instructions: Antibiotic Form Patient Language: [place] Stand Alone Forms: General Discharge Information Follow-up/Referrals: Mariluz Dickerson MD [Physician, [employer]PERATOR] Discharge Medications: New acetaminophen 325 mg Tablet 650 mg PO Q6H PRN (Reason: Mild Pain (1-3) Or Headache) Qty: 60 0RF docusate sodium 100 mg Capsule 100 mg PO BID PRN (Reason: Constipation) Qty: 90 0RF ibuprofen 600 mg Tablet 600 mg PO Q6H PRN (Reason: Cramping) Qty: 40 0RF Continued Classic 28 mg iron- 800 mcg tablet 1 tablet PO DAILY Discontinued aspirin 81 mg tablet,chewable 81 mg PO DAILY Date of admission: 07/06/25 09:52 Primary Care Provider: Elvira Ochoa Admitting Provider: Mariluz Dickerson Attending physician on admission: Mariluz Dickerson Condition: Stable
[2025-07-08 08:15] VITALS: BP 120/81; PULSE 76; RESP 16; TEMP 36.6; O2SAT 98
[2025-07-08] MEDS: IBUPROFEN 600 MG TABLET PO (10:19)
[2025-07-09 09:18] VITALS: BP 121/74; PULSE 82; RESP 18; TEMP 36.8; O2SAT 99
== END 2025-07-08 13:37 | disposition home or self-care (01) | DRG 807 ==
LOC: ANHLDR 14:00 → ANHOB2 07-07 05:28
PROVIDERS: Admitting Provider Obstetrics & Gynecology; PCP Family Medicine; Visit Provider Obstetrics & Gynecology
PROC: 10E0XZZ Delivery of Products of Conception, External Approach (ICD-10-PCS; CPT 59514; principal; 2025-07-06 12:00)
DX: O32.1XX0 Maternal care for breech presentation, not applicable or unspecified (principal); Z37.0 Single live birth; Z3A.39 39 weeks gestation of pregnancy; O77.0 Labor and delivery complicated by meconium in amniotic fluid; O99.343 Other mental disorders complicating pregnancy, third trimester; F41.9 Anxiety disorder, unspecified; O71.82 Other specified trauma to perineum and vulva; O70.0 First degree perineal laceration during delivery
CPT/HCPCS: 36415; 85014; 85018; 85025; 86593; 86850; 86900; 86901; A9270; J2590; J2795; J3105; J7120